=== PATIENT | female | born 1960 | race Caucasian/White ===

== ENCOUNTER → 2017-03-12 | Outpatient (CLI) | payer BC ==
[~2017-03-12] MED LIST: ATIVAN0.5 MG PO; CANDESARTAN-HC1 EAC1 PO; CEFTRIAXONE2 G1 IVPB; ENOXAPARIN40 MG/0.1 SUBQ; LAMISIL AT 1% C12 G1 TOP; PERCOCET PO
== END ==
LOC: RAD 12:57
DX: M25.562 Pain in left knee (principal); R06.02 Shortness of breath

== ENCOUNTER → 2018-06-10 | Outpatient (CLI) | payer BC | LOC: ULTRA 14:08 | DX: N95.0 Postmenopausal bleeding (principal); R93.8 Abnormal findings on diagnostic imaging of other specified body structures; I10 Essential (primary) hypertension; Z88.0 Allergy status to penicillin ==

== ENCOUNTER 2018-09-15 05:19 | Day surgery (SDC) | payer BC ==
[~2018-09-15] VITALS: Ht 175.3 cm; Wt 156.5 kg
--- NOTE | ~2018-09-15 | O ---
[address] [address] OPERATIVE REPORT Name: MATTFIDENCIO Kyler Room #: DEP [facility] M.Kyler.#: [id number] Admission: 09/15/18 Attend Phys: Vipul Boo MD Discharge: 09/15/18 Date of : 56 Report #: [id number] THIS REPORT FOR: //name// CC: Vince Boo DATE OF SERVICE: 09/15/2018 PREOPERATIVE DIAGNOSES: 1. Postmenopausal bleeding. 2. Endometrial polyps. 3. Thickened endometrium. POSTOPERATIVE DIAGNOSES: 1. Postmenopausal bleeding. 2. Endometrial polyps. 3. Thickened endometrium. PROCEDURES: Dilatation and curettage, hysteroscopic endometrial polypectomy x 3 polyps. SURGEON: Vipul Boo M.D. RESET MERCHANDISER: None. ANESTHESIA: General. ESTIMATED BLOOD LOSS: 3 mL. SPECIMENS: 1. Endometrial polyps. 2. Endocervical polyps. 3. Endometrial curettings. FLUIDS: Hysteroscopic fluids 1800 mL in, 1600 mL out. FINDINGS: Endocervical polyp found at the upper aspects of the endocervical canal anteriorly. A second polyp in the endometrium in the lower uterine segment anteriorly. A third polyp found in the endometrium in the right mid anterior corpus. A fourth sessile endometrial polyp found at the posterior fundus on the right side. The endometrium was mildly thickened otherwise. There was no evidence of any submucosal fibroids. Uterus sounded to a depth of 9 cm. DESCRIPTION OF PROCEDURE: The patient was seen in the preoperative holding area [address] [place] [address] OPERATIVE REPORT Name: FIDENCIO GUTIERREZ Kyler Room #: DEP [facility] MMary.#: [id number] Admission: 09/15/18 Attend Phys: Vipul Boo MD Discharge: 09/15/18 Date of : 56 Report #: [id number] where consent was obtained for surgery and postoperative followup and instructions were reviewed. She was then taken to the Operating Room, administered general anesthesia, prepped and draped in sterile fashion in the dorsal lithotomy position. It should be noted that her body mass index was greater than 50. Speculum was placed in the vagina and the anterior lip of the cervix was grasped using a single tooth tenaculum. The uterine cervix was then dilated to a #11 dilator. The diagnostic hysteroscope was then inserted under direct hysteroscopic vision with normal saline distending medium. Findings were as dictated above hysteroscopically. The hysteroscope was removed and the endocervical canal progressively dilated to a #13 dilator. MyoSure hysteroscope was then inserted and the morcellator used to remove the endocervical polyp and the 3 endometrial polyps. The morcellator was then used to sample the endometrium throughout the entirety of the uterine cavity except for the fundus. The MyoSure unit was then removed and withdrawn. The fluid intake and output was then measured. The uterus was sounded to a depth of 9 cm. Hanks dilators were then used to progressively dilate the endocervical canal to #20. A smooth sharp curette was then used to obtain scant endometrial curettings from the entirety of the endometrial cavity. These were sent with the original specimen from the MyoSure unit. The hemostasis was observed after removing single tooth tenaculum and pressure on the cervix with sponge on the stick. All pad and instrument counts were correct. The patient was brought out of general anesthesia and taken to recovery room with the IV infusing well. She was to be discharged home upon emerging from anesthesia. Recovery room nurses were advised of the patient's history of sleep apnea. By: 1030 1140 Vipul Boo MD /nt
--- NOTE | ~2018-09-15 | EKG ---
[address] [address] ELECTROCARDIOGRAM REPORT Name: FIDENCIO GUTIERREZ Room #: [address] [place] [address].#: [id number] Admission: 09/15/18 Attend Phys: Vipul Boo MD Discharge: Date of : 56 Report #: [id number] THIS REPORT FOR: //name// [facility] Test Date: 2018-09-15 Test Time: 08:00:19 Pat Name: FIDENCIO GUTIERREZ Department: Room: [facility] Gender: F [employer]il Stabilizer: shanon : 1960 Requested By: Vipul Boo Order Number: [id number] MD: Jerry Adams Measurements Intervals [place] Rate: 65 P: 62 CT: 160 QRS: 34 QRSD: 79 T: 59 QT: 399 QTc: 415 Interpretive Statements Sinus rhythm Abnormal R-wave progression, early transition No previous ECG available for comparison Electronically Signed On 09-15-2018 8:52:51 CDT by Jerry Adams [email or web address] <ELECTRONICALLY SIGNED> By: Jerry Adams MD, [facility] 09/15/18 0852 08 0800 Jerry Adams MD, FACC /EPI
--- NOTE | ~2018-09-15 | PATH ---
[facility] [address] [place] [address] PATHOLOGY RPT PROCEDURE Name: FIDENCIO GUTIERREZ [place] #: [place] [facility] M.R.#: [id number] Admission: 09/15/18 Date of : 56 Discharge: 09/15/18 Report #: [id number] Path Case #: [id number] [facility] Accession Number: [id number] . 01 Material submitted: . ENDOMETRIAL POLYPS . 01 Clinical history: . PMB, endometrial thickening . 02 Diagnosis: Endometrial "endometrial polyps": - Fragments of polypoid endometrium arising in the background of disordered proliferative phase endometrium without hyperplasia or malignancy. . (SHA:at;09/16/2018) QTA/09/16/2018 . 02 Electronically signed: . Anthony Cohn MD, Pathologist NPI- [id number] . 01 Gross description: . Received in formalin labeled "Fidencio Gutierrez, endometrial polyps," is blood-tinged mucoid material containing small fragments of sawyer membranous tissue, measuring 2.5 x 2.4 x 0.5 cm in aggregate dimensions. The specimen is filtered and submitted entirely in cassette A1. (TSD; 09/15/2018) TOB/TOB . 02 Pathologist provided ICD-10: N85.9 . 02 CPT . 713438 Specimen Comment: A courtesy copy of this report has been sent to Specimen Comment: [phone], . Specimen Comment: Report sent to / DR GOODMAN Performed at: [address], [place], [place] [id number] MD Malcom Garcia MD Phone: [phone] Performed at: [address] [id number] MD Nena Freed MD Phone: [phone]
--- NOTE | ~2018-09-15 | H ---
[facility] [place] [address] [place] [address] HISTORY AND PHYSICAL Name: FIDENCIO GUTIERREZ Room #: [facility] [place].R.#: [id number] Admission: Attend Phys: Vipul Boo MD Discharge: Date of : 56 Report #: [id number] THIS REPORT FOR: //name// CC: Vince Boo DATE OF SERVICE: 09/15/2018 ANTICIPATED DATE OF ADMISSION AND SURGERY: 09/15/2018. HISTORY OF PRESENT ILLNESS: This patient is a 58-year-old white female, 2, para 1, AB 1, referred from Althea Santana, nurse practitioner, for postmenopausal bleeding since 06/2017 and for thickened endometrium 8 mm depth found on ultrasound scan. An endometrial biopsy was performed on 07/08/2018, showing fragments of secretory endometrium and tissue consistent with benign endometrial polyps. During her 50s, her menses have occurred every other month, lasting 3-4 days of light flow. She believes her bleeding ceased for 6-8 months in the early part of 2016. Her bleeding resumed, 06/2017, sporadically, varying between light and heavy. She usually at least spots blood every few days. Her hemoglobin on 06/08/2018 was 16.7. TSH was 2.02. REVIEW OF SYSTEMS: EARS, NOSE AND THROAT: Denies. EYES: Wears glasses. RESPIRATORY: Has occasional shortness of breath. CARDIAC: She does have some leg swelling. GASTROINTESTINAL: Denies any abdominal pain. GENITOURINARY: She does have some frequency and abnormal bleeding as per HPI. NEUROLOGIC: Neurologic problems are denied. MUSCULOSKELETAL: She does have some joint pain. PSYCHIATRIC: She denies any depression. ENDOCRINE: She admits to some easy bruising. SKIN: No skin issues. IMMUNE SYSTEM: No problems. Sleep apnea, she does admit to. ALLERGIES: MORPHINE CAUSES RASH. PENICILLIN CAUSES RASH. MEDICATIONS: Magnesium hydroxide by mouth. ILLNESSES AND DISEASES: Arthritis, cataracts and hypertension. PAST SURGICAL HISTORY: section, endometrial biopsy per HPI, total left knee replacement in 2017 and tonsillectomy. FAMILY HISTORY: No pertinent family history. [facility] [address] [place] [address] HISTORY AND PHYSICAL Name: FIDENCIO GUTIERREZ Room #: [facility] M.R.#: [id number] Admission: Attend Phys: Vipul Boo MD Discharge: Date of : 56 Report #: [id number] SOCIAL HISTORY: She smokes one-half pack per day for the past 4 years. She denies alcohol or drug use. PHYSICAL EXAMINATION: VITAL SIGNS: Height 5 feet 9 inches tall, weight 345 pounds and body mass index 50.95. Temperature 98.0, blood pressure 160/70 and pulse 97. GENERAL: She is alert and oriented x 3, but morbidly obese. HEAD, EYES, EARS, NOSE AND THROAT Within normal limits. HEART: Regular rhythm and rate. LUNGS: Clear. ABDOMEN: Soft, nontender and nondistended. Normal bowel sounds. SKIN: No rashes. No bruises, no petechia. BREAST EXAMINATION: Deferred. EXTREMITIES: Nontender. GYNECOLOGIC EXAMINATION: Deferred to operating room. LABORATORY DATA: Estradiol 23.6, FSH 32.2, LH 23.6. CBC shows a white count of 9.3, hemoglobin of 17.0, hematocrit 31.6 and platelet count 240,000. INR is 1.2. PT is 12.0, PTT is 59. Factor VIII activity is high at 179. ASSESSMENT AND PLAN: 1. Postmenopausal bleeding versus anovulatory bleeding in a 58-year-old female. 2. Consider premenopausal state. Labs are indicative of a postmenopausal state. 3. D and C hysteroscopy with possible MyoSure removal of the endometrial polyps or submucosal fibroids. 4. Sleep apnea history. <ELECTRONICALLY SIGNED> By: Vipul Boo MD 09/14/18 1701 0924 1150 Vipul Boo MD /nt
[~2018-09-15 05:19] MED LIST changes: +MAGOX 400400 MG PO; +MOBIC15 MG PO; +NORVASC5 MG PO
[2018-09-15 08:00] VITALS: BP 159/92
[2018-09-15 08:05] LABS: CALCIUM 9.4 mg/dL (8.5-10.1); POTASSIUM 4.2 mmol/L (3.5-5.1)
[2018-09-15] MEDS ORDERED: IBUPROFEN 800800 M1 PO (10:39)
[2018-09-15 10:54] VITALS: BP 159/92
== END 2018-09-15 11:30 | disposition home or self-care (01) ==
LOC: TBA 05:19 → OR 05:19
PROVIDERS: Obstetrics & Gynecology
DX: N84.0 Polyp of corpus uteri (principal); N95.0 Postmenopausal bleeding; I10 Essential (primary) hypertension; E78.5 Hyperlipidemia, unspecified; F17.210 Nicotine dependence, cigarettes, uncomplicated; M19.90 Unspecified osteoarthritis, unspecified site; Z96.652 Presence of left artificial knee joint; Z98.890 Other specified postprocedural states; Z88.0 Allergy status to penicillin; Z88.8 Allergy status to other drugs, medicaments and biological substances; Z79.899 Other long term (current) drug therapy
CPT/HCPCS: 50010; 50101; 54171

== ENCOUNTER → 2018-11-17 | Outpatient (CLI) | payer BC ==
[~2018-11-17] MED LIST changes: +IBUPROFEN 800800 M1 PO
== END ==
LOC: CAT 08:42
PROVIDERS: Obstetrics & Gynecology
DX: N20.0 Calculus of kidney (principal); K82.8 Other specified diseases of gallbladder; N28.89 Other specified disorders of kidney and ureter; N95.0 Postmenopausal bleeding; N84.0 Polyp of corpus uteri; E28.0 Estrogen excess; E66.01 Morbid (severe) obesity due to excess calories; M47.816 Spondylosis without myelopathy or radiculopathy, lumbar region; M41.86 Other forms of scoliosis, lumbar region; M48.02 Spinal stenosis, cervical region

== ENCOUNTER → 2019-09-12 | Outpatient (CLI) | payer BC, OTHER ==
[2019-09-12 12:02] LABS: CREATININE 0.9 mg/dL (0.6-1.0)
== END ==
LOC: MRI 09:38
PROVIDERS: Nurse Practitioner
DX: N28.1 Cyst of kidney, acquired (principal); R16.0 Hepatomegaly, not elsewhere classified